=== PATIENT | female | born 1970 | race Caucasian/White ===

== ENCOUNTER 2020-04-04 10:50 | Emergency (ER) | payer BC ==
[~2020-04-04] VITALS: Ht 157.5 cm; Wt 72.1 kg
[2020-04-04 11:02] VITALS: BP 95/45
[2020-04-04 11:50] VITALS: BP 95/45
== END 2020-04-04 11:50 | disposition home or self-care (01) ==
LOC: MED 10:50
DX: B34.9 Viral infection, unspecified (principal); G43.909 Migraine, unspecified, not intractable, without status migrainosus; Z20.828 Contact with and (suspected) exposure to other viral communicable diseases
CPT/HCPCS: 99283; U0003